=== PATIENT | male | born 1940 | race Two or more races ===

== ENCOUNTER 2020-05-21 12:14 | Emergency (ER) | payer MEDICARE, OTHER ==
[~2020-05-21] VITALS: Ht 165.1 cm; Wt 75.0 kg
[2020-05-21 12:40] VITALS: BP 145/69
== END 2020-05-21 14:56 | disposition home or self-care (01) ==
LOC: ER 12:14
DX: I87.2 Venous insufficiency (chronic) (peripheral) (principal)
CPT/HCPCS: 99281